=== PATIENT | male | born 1960 | race African-American/Black ===

== ENCOUNTER → 2017-02-23 | Outpatient (CLI) | payer OTHER ==
[2015-05-09 22:15] VITALS: BP 141/80
[~2017-02-23] MED LIST: CONTRAST GIVEN MC PRN; IOHEXOL 240 MG/ML 50ML VIAL. PO ONE; IOHEXOL 300 MG/ML 75 ML VIAL IV ONE
--- NOTE | 2017-02-23 11:15 | RAD ---
CT abdomen with IV contrast History: Right upper abdominal pain. Comparison: None. Technique: After administration of oral and intravenous contrast, 75 mL Omnipaque 300, helical CT of the abdomen was performed. Axial, sagittal, and coronal reconstructions were obtained. One or more of the following individualized dose reduction techniques were utilized for the study: Automated exposure control Adjustment of mA and/or kV according to patient's size Use of iterative reconstruction technique. Findings: Images of lower chest demonstrate multiple small scattered nonspecific pulmonary nodules measuring up to 4 mm in maximum dimension. Liver, spleen, pancreas, gallbladder, and bilateral adrenal glands are unremarkable. Bilateral kidneys enhance symmetrically. There is no evidence of bowel obstruction. No free air or free fluid is identified in the abdomen. Circumaortic left renal vein is seen. Impression: 1. No acute abnormality identified in the abdomen or pelvis. No explanation for patient's symptoms is identified. 2. Nonspecific soft tissue pulmonary nodules measuring up to 4 mm. Recommend Fleischner Society guidelines regarding follow-up. Fleischner Society recommendations for the follow up and management of nodules smaller than 8 mm detected incidentally at Nons[facility] Radiology, 2004;237(2):395-400 Note - Newly detected indeterminate nodule in persons 35 years of age or older. Low-Risk Patient: (Minimal or absent history of smoking and of other known risk factors) Less than or equal to 4 mm: no follow-up needed 4-6 mm: Follow-up CT at 12 months; If unchanged, no further follow-up 6-8 mm: Initial follow-up CT at 6-12 months, then at 18-24 months if no change Greater than 8 mm: f/u CT at around 3, 9 and 24 months, dynamic contrast-enhanced CT, PET and/or biopsy High-Risk Patient: (History of smoking or of other known risk factors) 4 mm or less: f/u CT at 12 months; if unchanged, no further f/u 4-6 mm: f/u at 6-12 months and 18-24 months if unchanged 6-8 mm: Initial f/u at 3-6 months, then 9-12 months and 24 months if unchanged 8 mm or greater: Same as Low-Risk patient.
== END | disposition home or self-care (01) ==
LOC: CT 07:33
PROVIDERS: ATTEND Family Medicine
DX: R10.11 Right upper quadrant pain (principal)
CPT/HCPCS: 74160; Q9966; Q9967